=== PATIENT | male | born 1985 | race Caucasian/White ===

== ENCOUNTER 2025-01-28 03:19 | Emergency (ER) | payer OTHER ==
[~2025-01-28] VITALS: Ht 185.4 cm; Wt 148.3 kg
[2025-01-28 03:26] VITALS: O2SAT 100
[2025-01-28 04:09] LABS: BASOPHILS % 1.1 % (0.0-2.0); EOSINOPHILS % 7.7 % (0.0-5.0); HEMATOCRIT. 38.6 % (42.0-52.0); HEMOGLOBIN. 12.5 g/dL (14.0-18.0); LYMPHOCYTES % 32.6 % (20.0-50.0); MEAN PLATELET VOLUME 8.1 fl (7.4-10.4); MONOCYTES % 8.7 % (2.0-8.0); NEUTROPHILS % 49.9 % (40.0-76.0); PLATELET 276 x1000/uL (130-400); RED BLOOD CELL COUNT 4.98 mill/uL (4.7-6.1); RED CELL DISTRIBUTION WIDTH 17.2 % (11.6-14.6)
[2025-01-28 04:23] LABS: CREATININE 1.0 mg/dL (0.6-1.3); UREA NITROGEN BLOOD 15 mg/dL (9-23)
[2025-01-28 05:00] VITALS: BP 146/85; PULSE 90; RESP 12; TEMP 37.1; O2SAT 100
== END 2025-01-28 05:00 | disposition home or self-care (01) ==
LOC: ER 03:19
DX: R06.02 Shortness of breath (principal); Z86.16 Personal history of COVID-19; Z98.890 Other specified postprocedural states
CPT/HCPCS: 36415; 71045; 80048; 85025; 93005; 99285

== ENCOUNTER 2025-05-29 11:31 | Emergency (ER) | payer SELFPAY ==
[~2025-05-29] VITALS: Ht 185.4 cm; Wt 140.0 kg
[2025-05-29 11:38] VITALS: O2SAT 97
[2025-05-29] MEDS: ONDANSETRON 4MG ODT PO ONE (12:27)
[2025-05-29] MEDS: ACETAMINOPHEN 500MG TABLET PO ONE (12:27)
[2025-05-29] MEDS: KETOROLAC 15MG/ML VIAL IM ONE (12:29)
[2025-05-29 12:45] LABS: BASOPHILS % 0.7 % (0.0-2.0); EOSINOPHILS % 8.6 % (0.0-5.0); HEMATOCRIT. 40.3 % (42.0-52.0); HEMOGLOBIN. 13.1 g/dL (14.0-18.0); LYMPHOCYTES % 20.2 % (20.0-50.0); MEAN PLATELET VOLUME 8.5 fl (7.4-10.4); MONOCYTES % 7.9 % (2.0-8.0); NEUTROPHILS % 62.6 % (40.0-76.0); PLATELET 247 x1000/uL (130-400); RED BLOOD CELL COUNT 5.12 mill/uL (4.7-6.1); RED CELL DISTRIBUTION WIDTH 15.9 % (11.6-14.6)
[2025-05-29 13:04] LABS: CREATININE 0.9 mg/dL (0.6-1.3); UREA NITROGEN BLOOD 10 mg/dL (9-23)
[2025-05-29 13:05] LABS: PROTEIN TOTAL 6.5 g/dL (6.0-8.3)
[2025-05-29 13:06] LABS: ASPARTATE AMINOTRANSFERASE 39 IU/L (<34); BILIRUBIN DIRECT 0.1 mg/dL (<=3.0); BILIRUBIN TOTAL 0.6 mg/dL (0.1-1.0)
[2025-05-29 14:16] VITALS: BP 126/74; PULSE 85; RESP 18; TEMP 36.6; O2SAT 97
== END 2025-05-29 14:19 | disposition home or self-care (01) ==
LOC: ER 11:31
DX: B34.9 Viral infection, unspecified (principal)
CPT/HCPCS: 99283; 80076; 80048; 83690; 85025; 36415; 96372; J1885; Q0162